=== PATIENT | male | born 1985 | race Caucasian/White ===

== ENCOUNTER 2019-08-13 19:52 | Emergency (ER) | payer BC ==
--- NOTE | 2019-08-13 20:15 | EDM.PDOC ---
ED HPI GENERAL MEDICAL PROBLEM - General Chief Complaint: Upper Extremity Injury/Pain Stated Complaint: LEFT FINGER INJURY Time Seen by Provider: 08/13/19 20:08 Source of Information: Reports: Patient History Limitations: Reports: No Limitations - History of Present Illness INITIAL COMMENTS - FREE TEXT/NARRATIVE: HISTORY AND PHYSICAL: History of present illness: Patient is a 33-year-old male who presents to the emergency room with complaints of pain of the left fourth digit. During a game of baseball he slid on the ground with his arms outstretched and he feels that he is hand jammed on a player shoe. He is complaining of pain at the PIP joint and is unable to bend his finger. He denies any other extremity involvement. Denies hitting his head or having any loss of consciousness. Offers no systemic complaints. Review of systems: As per history of present illness and below otherwise all systems reviewed and negative. Past medical history: As per history of present illness and as reviewed below otherwise noncontributory. Surgical history: As per history of present illness and as reviewed below otherwise noncontributory. Social history: See social history for further information Family history: As per history of present illness and as reviewed below otherwise noncontributory. Physical exam: General: Well-developed and well-nourished 33-year-old male. Alert and oriented. Nontoxic-appearing and in no acute distress. HEENT: Atraumatic, normocephalic, pupils equal and reactive bilaterally, negative for conjunctival pallor or scleral icterus, mucous membranes moist, TMs normal bilaterally, throat clear, neck supple, nontender, trachea midline. No drooling or trismus noted. No meningeal signs. No hot potato voice noted. Lungs: Clear to auscultation, breath sounds equal bilaterally, chest nontender. Heart: S1S2, regular rate and rhythm without overt murmur Abdomen: Soft, nondistended, nontender. Negative for masses or hepatosplenomegaly. Negative for costovertebral tenderness. Skin: Intact, warm, dry. No lesions or rashes noted. Extremities: Pain with palpation of the left fourth digit at the PIP joint. Unable to bend at the PIP joint of affected finger. No pain at the DIP joint, hand or wrist. +Cap refill. Otherwise moves all other extremities per self without difficulty or deficits, negative for cords or calf pain. Neurovascular unremarkable. Neuro: Awake, alert, oriented. Cranial nerves II through XII unremarkable. Cerebellum unremarkable. Motor and sensory unremarkable throughout. Exam nonfocal. Notes: X-ray shows. With consent and after explaining procedure the finger was easily reduced. Patient states he feels improved and can flex and extend his fingers without any difficulty or deficits. I did place the patient in a spoon splint that was bent in a 45 degree position. He declined wanting a post-reduction film. We discussed signs and symptoms that would prompt him to return to the emergency room. I did offer to provide him with pain medication, he declines. Supportive care measures were reviewed and discussed. Voices understanding and is agreeable to plan of care. Denies any further questions or concerns at this time. Diagnostics: Finger x-ray Therapeutics: Spoon splint in a bent position Prescription: Declines Impression: Finger dislocation Plan: 1. Please wear the splint to keep the finger in a semi-flexed (bent) position over the next 1-3 days. Be gentle in your physical activities. 2. Tylenol and/or ibuprofen as needed for pain management. 3. Follow-up with your primary care provider or an orthopedic provider as we discussed. Return to the ED as needed and as discussed. Definitive disposition and diagnosis as appropriate pending reevaluation and review of above. L index Pain Score (Numeric/FACES): 6 - Related Data Allergies Allergy/AdvReac Type Severity Reaction Status Date / Time No Known Allergies Allergy Verified 08/13/19 20:13 Home Meds: Home Meds . [No Known Home Meds] 08/13/19 [History] Review of Systems - Review of Systems Review Of Systems: Comprehensive ROS is negative, except as noted in HPI. ED EXAM, GENERAL - Physical Exam Exam: See Below (See dictation) Course - Vital Signs Last Recorded V/S: Last Vital Signs Temp 97.6 F 08/13/19 19:59 Pulse 119 H 08/13/19 19:59 Resp 17 08/13/19 19:59 BP 152/99 H 08/13/19 19:59 Pulse Ox 96 08/13/19 19:59 - Orders/Labs/Meds Orders: Active Orders 24 hr Category Date Time Status Fingers Fourth Digit Lt F3 [CR] Stat Exams 08/13/19 20:09 Taken Departure - Departure Time of Disposition: 20:32 Disposition: Home, Self-Care 01 Clinical Impression: Finger dislocation Qualifiers: Encounter type: initial encounter Qualified Code(s): S63.259A - Unspecified dislocation of unspecified finger, initial encounter - Discharge Information Instructions: Finger or Thumb Dislocation, [id number] Referrals: PCP,None [Primary Care Provider] - Forms: ED Department Discharge Additional Instructions: The following information is given to patients seen in the emergency department who are being discharged to home. This information is to outline your options for follow-up care. We provide all patients seen in our emergency department with a follow-up referral. The need for follow-up, as well as the timing and circumstances, are variable depending upon the specifics of your emergency department visit. If you don't have a primary care physician on staff, we will provide you with a referral. We always advise you to contact your personal physician following an emergency department visit to inform them of the circumstance of the visit and for follow-up with them and/or the need for any referrals to a consulting specialist. The emergency department will also refer you to a specialist when appropriate. This referral assures that you have the opportunity for follow-up care with a specialist. All of these measure are taken in an effort to provide you with optimal care, which includes your follow-up. Under all circumstances we always encourage you to contact your private physician who remains a resource for coordinating your care. When calling for follow-up care, please make the office aware that this follow-up is from your recent emergency room visit. If for any reason you are refused follow-up, please contact the [facility] Emergency Department at and asked to speak to the emergency department charge nurse. [facility] [address] [place] [id number] [address] 1. Please wear the splint to keep the finger in a semi-flexed (bent) position over the next 1-3 days. Be gentle in your physical activities. 2. Tylenol and/or ibuprofen as needed for pain management. 3. Follow-up with your primary care provider or an orthopedic provider as we discussed. Return to the ED as needed and as discussed. Sepsis Event Note (ED) - Focused Exam Vital Signs: Vital Signs Temp Pulse Resp BP Pulse Ox 08/13/19 19:59 97.6 F 119 H 17 152/99 H 96 - My Orders Last 24 Hours: My Active Orders 08/13/19 20:09 Fingers Fourth Digit Lt F3 [CR] Stat - Assessment/Plan Last 24 Hours: My Active Orders 08/13/19 20:09 Fingers Fourth Digit Lt F3 [CR] Stat
--- NOTE | 2019-08-13 20:44 | CR ---
Left fourth finger: 3 views centered to the left fourth finger were obtained. Dislocation is identified within the PIP joint. Distal phalanx is displaced posteriorly. Possible minimal chip fracture off the volar aspect of the middle phalanx. No additional bony abnormality is seen. Soft tissue swelling is noted. Impression: 1. Dislocation as described above. 2. Possible minimal chip fracture. Diagnostic code #5 Study was dictated in MDT
== END 2019-08-13 20:46 | disposition home or self-care (01) ==
LOC: MW.ED 19:52
DX: S63.285A Dislocation of proximal interphalangeal joint of left ring finger, initial encounter (principal); W01.0XXA Fall on same level from slipping, tripping and stumbling without subsequent striking against object, initial encounter; Y93.64 Activity, baseball
CPT/HCPCS: 26750; 26770; 28660; 73140-26-F3; 73140-F3; 99283; 99283-25

== ENCOUNTER 2020-09-11 20:57 | Emergency (ER) | payer BC ==
[2020-09-11] MEDS ORDERED: Diphtheria,Pertussis(Acell),Tetanus Vaccine 0.5 ML Syringe IM ONE (21:34)
--- NOTE | 2020-09-11 21:55 | EDM.PDOC ---
ED HPI GENERAL MEDICAL PROBLEM - General Chief Complaint: Skin Complaint Stated Complaint: LACERATION OF CALF Time Seen by Provider: 09/11/20 21:18 - History of Present Illness INITIAL COMMENTS - FREE TEXT/NARRATIVE: HISTORY AND PHYSICAL: History of present illness: This is a 35-year-old gentleman who presents ER today secondary to a laceration to his posterior calf that occurred approximately 1 PM against charles wire while he was walking his dog. Patient's tetanus status is not up-to-date. Patient reports that this evening he was trying to clean his wound after Steri-Strip in it earlier today and it continued to bleed. Patient reports that he irrigated it with a significant amount of soap and water after the initial injury. Patient denies any other deficits. Review of systems: As per history of present illness and below otherwise all systems reviewed and negative. Past medical history: As per history of present illness and as reviewed below otherwise noncontributory. Surgical history: As per history of present illness and as reviewed below otherwise noncontributory. Social history: No reported history of drug abuse. Family history: As per history of present illness and as reviewed below otherwise noncontributory. Physical exam: This patient was seen and evaluated during the 2019 SARS-CoV-2 novel coronavirus pandemic period. Community viral transmission is ongoing at time of this encounter and the emergency department is operating under pandemic response procedures. Constitutional: Patient is oriented to person, place, and time. Appears well- developed and well-nourished. No distress. HEENT: Moist mucous membranes Head: Normocephalic and atraumatic Eyes: Right eye exhibits no discharge. Left eye exhibits no discharge. No scleral icterus Neck: Normal range of motion. No tracheal deviation present. Cardiovascular: Normal rate and regular rhythm. Pulmonary: Effort normal, no respiratory distress. Abdominal: No distention Musculoskeletal: Normal range of motion Neurologic: Alert and oriented to person, place and time. Skin: Ray, warm and dry. Psychiatric: Normal mood and affect. Behavior is normal. Judgment and thought content normal. Nursing note and vital signs have been reviewed Patient's ER physical exam is significant for a 6 cm laceration to his posterior calf that already has 7 Steri-Strips placed. Patient does have some active bleeding at sites in between the Steri-Strips secondary to him running out of Steri-Strips at home. No active discharge or evidence of infection at this time. Diagnostics: [] Therapeutics: [] Assessment and plan: After discussion with the patient, the patient has requested that we add additional sutures but to leave the Steri-Strips in place. Wound was anesthetized with lidocaine and 7 additional 4-0 Ethilon sutures were placed in between all sutures with good hemostasis achieved. Tdap 0.5 IM No antibiotic indicated at this time Wound check in 2 days by his PCP for any signs of infection Suture removal in 7 to 10 days. Definitive disposition and diagnosis as appropriate pending reevaluation and review of above. Right Leg Pain Score (Numeric/FACES): 0 - Related Data Allergies Allergy/AdvReac Type Severity Reaction Status Date / Time No Known Allergies Allergy Verified 08/13/19 20:13 Home Meds: Home Meds . [No Known Home Meds] 08/13/19 [History] Past Medical History - Past Health History Medical/Surgical History: Denies Medical/Surgical History Genitourinary History: Reports: None Musculoskeletal History: Reports: None Hematologic History: Reports: None - Infectious Disease History Infectious Disease History: Reports: Chicken Pox - Past Surgical History Male Surgical History: Reports: Vasectomy Musculoskeletal Surgical History: Reports: Other (See Below) Other Musculoskeletal Surgeries/Procedures:: R kne reconstruction x 3, L knee miniscus repair Social & Family History - Family History Family Medical History: No Pertinent Family History - Tobacco Use Tobacco Use Status *Q: Never Tobacco User - Caffeine Use Caffeine Use: Reports: Coffee - Recreational Drug Use Recreational Drug Use: No ED ROS GENERAL - Review of Systems Review Of Systems: See Below ED EXAM, SKIN/RASH Exam: See Below ED SKIN PROCEDURES - Laceration/Wound Repair Right Leg Appearance: Subcutaneous, Linear, Clean Distal NVT: Neuro & Vascular Intact Anesthetic Type: Local Local Anesthesia - Lidocaine (Xylocaine): 1% Plain Local Anesthetic Volume: 3cc Skin Prep: Isopropyl Alcohol (Alcohol), Saline Exploration/Debridement/Repair: Wound Explored, In a Bloodless Field, Explored to Base, No Foreign Material Found Closed with: Sutures Lac/Wound length In cm: 6 Suture Size: 4-0 # of Sutures: 7 Suture Type: Nylon, Interrupted, Simple Tetanus Status Addressed: Yes Complications: No Course - Vital Signs Last Recorded V/S: Last Vital Signs Temp 98.5 F 09/11/20 21:10 Pulse 97 09/11/20 21:10 Resp 20 09/11/20 21:10 BP 152/105 H 09/11/20 21:10 Pulse Ox 96 09/11/20 21:10 - Orders/Labs/Meds Orders: Active Orders 24 hr Category Date Time Status Vaccines to be Administered [RC] PER UNIT ROUTINE Care 09/11/20 21:34 Ordered Meds: Medications Discontinued Medications Generic Name Dose Route Start Last Admin Trade Name Ladan PRN Reason Stop Dose Admin Diphtheria/Tetanus/Acell Pertussis 0.5 ml 09/11/20 21:34 09/11/20 21:45 Diphtheria,Pertussis(Acell),Tetanus Vaccine 0.5 Ml Syringe IM 09/11/20 21:35 0.5 ml .ONCE ONE Administration Lidocaine HCl 5 ml 09/11/20 21:35 09/11/20 21:45 Lidocaine 1% 5 Ml Sdv INJECT 09/11/20 21:36 5 ml ONETIME ONE Administration Departure - Departure Time of Disposition: 21:53 Disposition: Home, Self-Care 01 Condition: Good Clinical Impression: Elevated blood pressure reading Laceration of right lower leg Qualifiers: Encounter type: initial encounter Qualified Code(s): S81.811A - Laceration without foreign body, right lower leg, initial encounter - Discharge Information Instructions: Laceration Care, Adult, Hypertension, Adult, [id number] Referrals: PCP,None [Primary Care Provider] - Additional Instructions: You were seen and evaluated in the ER today secondary to persistent bleeding fr om your right calf wound. 7 sutures have been placed in between the Steri- Strips that were applied. You will need a wound check in 2 days for any signs of infection by your PCP and sutures can be removed in 7 to 10 days. You received a tetanus shot here in the ER today. Please keep the wound clean and dry and covered. Please make an appointment to see your family doctor to repeat your blood pressure within the next week. Your blood pressure in the ER was elevated however this is sometimes not uncommon secondary to the stress of an injury and being in the emergency department. The following information is given to patients seen in the emergency department who are being discharged to home. This information is to outline your options for follow-up care. We provide all patients seen in our emergency department with a follow-up referral. The need for follow-up, as well as the timing and circumstances, are variable depending upon the specifics of your emergency department visit. If you don't have a primary care physician on staff, we will provide you with a referral. We always advise you to contact your personal physician following an emergency department visit to inform them of the circumstance of the visit and for follow-up with them and/or the need for any referrals to a consulting specialist. The emergency department will also refer you to a specialist when appropriate. This referral assures that you have the opportunity for follow-up care with a specialist. All of these measure are taken in an effort to provide you with optimal care, which includes your follow-up. Under all circumstances we always encourage you to contact your private physician who remains a resource for coordinating your care. When calling for follow-up care, please make the office aware that this follow-up is from your recent emergency room visit. If for any reason you are refused follow-up, please contact the [facility] Emergency Department at and asked to speak to the emergency department charge nurse. [facility] [address] [place] [address] [place] [address] Sepsis Event Note (ED) - Evaluation Sepsis Screening Result: No Definite Risk - Focused Exam Vital Signs: Vital Signs Temp Pulse Resp BP Pulse Ox 09/11/20 21:10 98.5 F 97 20 152/105 H 96 - My Orders Last 24 Hours: My Active Orders 09/11/20 21:34 Vaccines to be Administered [RC] PER UNIT ROUTINE - Assessment/Plan Last 24 Hours: My Active Orders 09/11/20 21:34 Vaccines to be Administered [RC] PER UNIT ROUTINE
== END 2020-09-11 22:03 | disposition home or self-care (01) ==
LOC: MW.ED 20:57
DX: S81.811A Laceration without foreign body, right lower leg, initial encounter (principal); R03.0 Elevated blood-pressure reading, without diagnosis of hypertension; Z23 Encounter for immunization; W26.8XXA Contact with other sharp object(s), not elsewhere classified, initial encounter
CPT/HCPCS: 12002; 90471; 90715; 99282; 99282-25